=== PATIENT | male | born 1995 | race Caucasian/White ===

== ENCOUNTER → 2021-11-30 | Outpatient (CLI) | payer BC ==
[~2021-11-30] VITALS: Ht 182.9 cm; Wt 79.4 kg
[~2021-11-30] MED LIST: ADVIL100 M3 PO; MOBIC15 MG PO
[2021-11-30 10:07] VITALS: BP 114/71
== END ==
LOC: PAIN 08:35
PROVIDERS: ATTEND Anesthesiology Pain Medicine
DX: M54.50 Low back pain, unspecified (principal); M79.659 Pain in unspecified thigh